=== PATIENT | female | born 1970 | race Caucasian/White ===

== ENCOUNTER 2016-07-27 10:02 | Emergency (ER) | payer SELFPAY ==
[2016-07-27 10:13] VITALS: O2SAT 100
--- NOTE | 2016-07-27 10:49 | ERPHSYRPT ---
- History of Present Illness Time Seen by Provider: 07/27/16 10:35 Source: patient Patient Subjective Stated Complaint: pain to lt flank since yesterday. lt flank redness since this morning Triage Nursing Assessment: pt states she had lt flank pain since yesterday under lt breast. slight redness noted today with severe pain to same area. Physician History: CC: rash Hx: 46 y/o with pain around left flank yesterday in bra line. Today she has a a rash in this area which is blotchy. No cough or diff breathing. No hx of shingles. No other complaints. Pain moderate. She has no local doctor as she recently moved here from [place]. She takes norvasc for HTN. No allergies. Timing/Duration: yesterday Quality: painful Allergies/Adverse Reactions: tramadol [From [facility]] Allergy (Verified 07/27/16 10:14) Home Medications: Amlodipine Besylate 5 mg [Norvasc 5 mg] 5 mg PO DAILY 07/27/16 [History] Gabapentin 300 mg PO TID 07/27/16 [History] Multivitamin [Multivitamins] 1 each PO DAILY 07/27/16 [History] Hx Tetanus, Diphtheria Vaccination/Date Given: Yes Hx Influenza Vaccination/Date Given: Yes Hx Pneumococcal Vaccination/Date Given: No Immunizations Up to Date: Yes - Review of Systems Constitutional: No Fever, No Chills Eyes: No Symptoms Ears, Nose, & Throat: No Symptoms Respiratory: No Cough, No Dyspnea Cardiac: No Chest Pain Abdominal/Gastrointestinal: No Abdominal Pain, No Nausea, No Vomiting Skin: Rash Neurological: No Focal Weakness, No Parasthesia - Past Medical History Pertinent Past Medical History: Yes Cardiac History: Hypertension - Past Surgical History Past Surgical History: Yes Female Surgical History: Hysterectomy, Breast Implant - Social History Smoking Status: Never smoker Exposure to second hand smoke: No Drug Use: none Patient Lives Alone: No - Nursing Vital Signs Nursing Vital Signs: Initial Vital Signs Temperature 98.5 F Temperature Source Oral Pulse Rate 65 Respiratory Rate 18 Blood Pressure [Left Radial 139/68 Artery] Pain Intensity 8 - Physical Exam General Appearance: alert Eye Exam: PERRL/EOMI Ears, Nose, Throat Exam: moist mucous membranes Neck Exam: normal inspection, supple Neurologic Exam: alert, oriented x 3, cooperative Skin Exam: warm, dry SpO2: 100 Oxygen Delivery: Room Air Comments: 07/27/16 10:46 exquisite sensitive painful skin in dermatomal distribution left flank and around. There is blotchy dark discoloration. This is neuropathic and dermatomal conistent with zoster. - Course Nursing assessment & vital signs reviewed: Yes - Progress Progress Note: 07/27/16 10:47 Rx acyclovir and norco. Prednisone not indicated as she is 46 y/o. Counseled pt/family regarding: diagnosis, need for follow-up - Departure Time of Disposition: 10:48 Departure Disposition: Home Clinical Impression: Zoster Qualifiers: Herpes zoster complications: without complications Qualified Code(s): B02.9 - Zoster without complications Condition: Stable Critical Care Time: No Referrals: DOCTOR,NO FAMILY [NON-STAFF PHY W/O PRIVILEGES] - Instructions: Shingles Additional Instructions: No driving while taking norco. Rx norco. Rx acyclovir. Follow up with family doctor. Prescriptions: Hydrocodone Bit/Acetaminophen [[place] 5-325 Tablet] 1 each PO Q6H PRN PRN #20 tablet PRN Reason: Pain Acyclovir 800 mg [Zovirax 800 mg] 800 mg PO 5XD #35 tablet
[2016-07-27 11:06] VITALS: BP 139/83; PULSE 57
== END 2016-07-27 11:04 | disposition home or self-care (01) ==
LOC: ED 10:02
DX: B02.9 Zoster without complications (principal); R10.9 Unspecified abdominal pain; Z79.899 Other long term (current) drug therapy; I10 Essential (primary) hypertension
CPT/HCPCS: 99282